=== PATIENT | female | born 1995 | race African-American/Black ===

== ENCOUNTER 2019-06-19 14:19 | Emergency (ER) | payer MEDICAID ==
[~2019-06-19] VITALS: Ht 167.6 cm; Wt 56.0 kg
[2019-06-19 14:50] VITALS: BP 94/55
== END 2019-06-19 15:16 | disposition left against medical advice (07) ==
LOC: ER 15:09
DX: Z53.21 Procedure and treatment not carried out due to patient leaving prior to being seen by health care provider (principal)